=== PATIENT | male | born 1955 | race Caucasian/White ===

== ENCOUNTER 2017-01-31 19:26 | Emergency (ER) | payer OTHER, MEDICARE ==
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
[~2017-01-31 19:26] MED LIST: HYDROCHLOROTH12.5 MG PO; PREDNISONE PO; PRILOSEC20 MG PO; PROTONIX PO; SKELAXIN PO; TEGRETOL PO; TOPAMAX PO; TOPAMAX200 MG PO
[2017-01-31] MEDS ORDERED: ONFI10 MG PO (19:36)
[2017-01-31] MEDS ORDERED: APTIOM200 MG PO (19:37)
== END 2017-01-31 21:33 | disposition home or self-care (01) ==
LOC: SED 19:26
DX: S63.501A Unspecified sprain of right wrist, initial encounter (principal); S50.12XA Contusion of left forearm, initial encounter; F41.9 Anxiety disorder, unspecified; R56.9 Unspecified convulsions; X58.XXXA Exposure to other specified factors, initial encounter; Z23 Encounter for immunization
CPT/HCPCS: 29105; 29125; 73080; 73110; 73130; 90471; 90715; 99283